=== PATIENT | female | born 1955 | race Caucasian/White ===

== ENCOUNTER 2020-02-20 08:07 | Day surgery (SDC) | payer BC ==
[~2020-02-20] VITALS: Ht 167.6 cm; Wt 111.0 kg
[2020-02-20] MEDS ORDERED: ATOR20 PO (09:38)
[2020-02-20] MEDS ORDERED: FURO40 (09:40)
[2020-02-20] MEDS ORDERED: ELIQUIS5 MG (09:40)
[2020-02-20] MEDS ORDERED: BASAGLAR K100 UNIT/1 (09:41)
[2020-02-20] MEDS ORDERED: GLYB2.5 (09:41)
[2020-02-20] MEDS ORDERED: METF500 (09:42)
[2020-02-20] MEDS ORDERED: LOW DOSE ASPIRI81 M1 (09:42)
[2020-02-20] MEDS ORDERED: METO100ER (09:43)
--- NOTE | 2020-02-20 11:27 | NUR ---
1115 DANYELL RETURNS FROM THE PORTAL ARCHITECT. SBAR RECEIVED FROM MYLES FAROOQ. CHECKED TR BAND WITH RT BATSHEVA. SITE AT RIGHT RADIAL WITH TR BAND IN PALCE ADN WHITE BOARD IN PLACE. PATIENT PLACED ON THE MONITOR AND CALL LIGHT IN REACH. PATIENT RELAXING IN A RECLINERAT THIS TIME.
--- NOTE | 2020-02-20 11:51 | NUR ---
DR. WASHINGTON AT THE BEDSIDE AND SPOKE WITH THE PATIENT AND HER . PATIENT WILL BE SENT FOR SURGICAL CONSULT. ALL QUESTIONS ANSWERED BY .
--- NOTE | 2020-02-20 12:15 | NUR ---
1210 REVIEWED ALL DISCHARGE INSTRUCTIONS WITH THE PATIENT AND HER FAMILY. ALL QUESTIONS ANSWERED.
--- NOTE | 2020-02-20 13:39 | NUR ---
REMOVING TR BAND, INITALLY BLED AND REINFLATED, WAITED 10 MINUTES BEGAN TAKING AIR OUT AGAIN @ 1300. ALL AIR OUT NOW. NO BLEEDING NOTED.
--- NOTE | 2020-02-20 14:05 | NUR ---
PIV REMOVED. CATHETER TIP INTACT. VVS. NO PAIN. SOB NOTED WITH BEING UP AND DRESSING AND MOVEMENT. AFTER PATIENT DRESSED AND TO THE RESTROOM, TR BAND REMOVED AND SITE CLEANED AND WHITE BOARD REPLACED TO THE RIGHT WRIST. PATIENT INSTRUCTED TO WEAR THE WHITE BOARD FOR 24 HOURS AND SHE CAN REMOVED THE DRESSINGS TO THE RIGHT WRIST AND RIGHT BRACHAIL TOMORROW AFTERNOON. PATEINT DISCAHRGED HOME WITH FOLLOW UP APPOINTMENT AND DRIVING. DISHCARGED VIA WHEELCHAIR.
== END 2020-02-20 14:00 | disposition home or self-care (01) ==
LOC: MHTC 08:07
PROC: 4A023N7 Measurement of Cardiac Sampling and Pressure, Left Heart, Percutaneous Approach (ICD-10-PCS; principal; 2020-02-20)
PROC: B201YZZ Plain Radiography of Multiple Coronary Arteries using Other Contrast (ICD-10-PCS; principal; 2020-02-20)
DX: I25.119 Atherosclerotic heart disease of native coronary artery with unspecified angina pectoris (principal); I11.0 Hypertensive heart disease with heart failure; I50.9 Heart failure, unspecified; I25.5 Ischemic cardiomyopathy; E78.00 Pure hypercholesterolemia, unspecified; E11.9 Type 2 diabetes mellitus without complications; Z79.4 Long term (current) use of insulin; E78.5 Hyperlipidemia, unspecified; I48.19 Other persistent atrial fibrillation; Z79.01 Long term (current) use of anticoagulants; Z79.899 Other long term (current) drug therapy; E66.01 Morbid (severe) obesity due to excess calories; Z88.0 Allergy status to penicillin; Z88.2 Allergy status to sulfonamides; Z88.1 Allergy status to other antibiotic agents; Z68.39 Body mass index [BMI] 39.0-39.9, adult
CPT/HCPCS: 85347; 93460; 99152; 99153; C1769; C1894; J1644; J2250; J3010; J7030; J7050; Q9967